=== PATIENT | female | born 1975 | race Two or more races ===

== ENCOUNTER 2021-09-13 12:41 | Observation (INO) | payer OTHER ==
[~2021-09-13] VITALS: Ht 172.7 cm; Wt 90.3 kg
[~2021-09-13 12:41] MED LIST: FLON1SPR; GABA-1171 PO; IBUP1TAB7 PO; PENT500C PO; PERCOCET PO; POLY17PO18 PO; SENN-53 PO; SOMA350T PO; ZANA4TAB PO
[2021-09-13] MEDS ORDERED: MESA400C2 PO (13:19)
[2021-09-13] MEDS ORDERED: MELA3TAB67 PO (13:19)
[2021-09-13] MEDS ORDERED: PRED20TA PO (13:19)
[2021-09-13] MEDS ORDERED: ALPR0.25 PO (13:19)
[2021-09-13 14:20] LABS: BASO # 0.1 10^3/uL (0.0-0.2); BASO % 0.4 % (0.0-1.0); EOS # 0.5 10^3/uL (0.0-0.5); EOS % 3.7 % (0.0-3.0); HEMATOCRIT 32.2 % (36.0-47.0); HEMOGLOBIN 9.8 g/dl (12.0-15.5); LYMPH # 1.9 10^3/uL (1.5-5.0); LYMPH % 14.5 % (24.0-44.0); MEAN CORPUSCULAR HEMOGLOBIN 23.9 pg (27.0-33.0); MEAN CORPUSCULAR HGB CONC 30.4 g/dl (32.0-36.5); MEAN CORPUSCULAR VOLUME 78.5 fl (80.0-96.0); MONO # 0.9 10^3/uL (0.0-0.8); MONO % 6.4 % (2.0-8.0); NEUTROPHILS # 9.8 10^3/uL (1.5-8.5); NEUTROPHILS % 74.5 % (36.0-66.0); PLATELET COUNT, AUTOMATED 396 10^3/uL (150-450); WHITE BLOOD COUNT 13.2 10^3/uL (4.0-10.0)
[2021-09-13 14:46] LABS: ALBUMIN 3.3 GM/DL (3.2-5.2); ALT/SGPT 32 U/L (12-78); BILIRUBIN,DIRECT 0.2 MG/DL (0.0-0.2); BILIRUBIN,TOTAL 0.5 MG/DL (0.2-1.0); BLOOD UREA NITROGEN 11 MG/DL (7-18); CALCIUM LEVEL 8.3 MG/DL (8.5-10.1); CARBON DIOXIDE LEVEL 25 MEQ/L (21-32); CHLORIDE LEVEL 110 MEQ/L (98-107); CREATININE FOR GFR 0.77 MG/DL (0.55-1.30); GLOMERULAR FILTRATION RATE > 60.0 (>58); GLUCOSE, FASTING 89 MG/DL (70-100); LIPASE 285 U/L (73-393); POTASSIUM SERUM 3.8 MEQ/L (3.5-5.1); SODIUM LEVEL 139 MEQ/L (136-145); TOTAL PROTEIN 6.8 GM/DL (6.4-8.2)
[2021-09-13 14:51] LABS: HCG, SERUM QUALITATIVE NEGATIVE (NEGATIVE)
[2021-09-13] MEDS ORDERED: ONDANSETRON 4MG/2ML VIAL IV ONE (16:50)
[2021-09-13] MEDS ORDERED: NS 1,000 ML IV ONE (16:50)
[2021-09-13 18:05] LABS: RSV AMPLIFICATION NEGATIVE (NEGATIVE)
[2021-09-13] MEDS ORDERED: IBUP200T46 PO (18:54)
[2021-09-13] MEDS ORDERED: NEUR100C PO (18:54)
[2021-09-13] MEDS ORDERED: HOME MED LIST COMPLETE! XX SCH (18:55)
[2021-09-13] MEDS ORDERED: FLUTICASONE PROP 0.05% NASAL SPRAY 16 GM (FLONASE) PRN (19:10)
[2021-09-13] MEDS ORDERED: ONDANSETRON 4MG/2ML VIAL IV PRN (19:10)
[2021-09-13] MEDS: NS 1,000 ML IV SCH (19:26)
[2021-09-13] MEDS: ACETAMINOPHEN TAB 650MG DOSE (2X325MG) PO PRN (19:26)
[2021-09-13] MEDS ORDERED: methylPREDNISolone 40MG 1ML VIAL IV ONE (20:40)
[2021-09-13] MEDS: ALPRAZolam 0.25 MG TAB PO SCH (21:05)
[2021-09-13] MEDS: GABAPENTIN 100 MG CAP PO SCH (21:05)
[2021-09-13] MEDS ORDERED: DICYCLOMINE 10 MG CAP PO PRN (21:15)
[2021-09-13] MEDS: MESALAMINE 400 MG CAPSULE DELAYED RELEASE (DELZICOL) PO SCH (21:42)
[2021-09-14] MEDS: ACETAMINOPHEN TAB 650MG DOSE (2X325MG) PO PRN ×2 (04:12→15:06)
[2021-09-14] MEDS: NS 1,000 ML IV SCH (04:13)
[2021-09-14 08:08] LABS: HEMATOCRIT 28.3 % (36.0-47.0); HEMOGLOBIN 8.7 g/dl (12.0-15.5); MEAN CORPUSCULAR HEMOGLOBIN 24.2 pg (27.0-33.0); MEAN CORPUSCULAR HGB CONC 30.7 g/dl (32.0-36.5); MEAN CORPUSCULAR VOLUME 78.8 fl (80.0-96.0); PLATELET COUNT, AUTOMATED 354 10^3/uL (150-450); RED BLOOD COUNT 3.59 10^6/uL (4.00-5.40); WHITE BLOOD COUNT 9.3 10^3/uL (4.0-10.0)
[2021-09-14 08:24] VITALS: BP 108/58
[2021-09-14 08:32] LABS: BLOOD UREA NITROGEN 8 MG/DL (7-18); CARBON DIOXIDE LEVEL 24 MEQ/L (21-32); CHLORIDE LEVEL 114 MEQ/L (98-107); CREATININE FOR GFR 0.68 MG/DL (0.55-1.30); GLOMERULAR FILTRATION RATE > 60.0 (>58); GLUCOSE, FASTING 146 MG/DL (70-100); MAGNESIUM LEVEL 2.3 MG/DL (1.8-2.4); POTASSIUM SERUM 4.2 MEQ/L (3.5-5.1); SODIUM LEVEL 141 MEQ/L (136-145)
[2021-09-14] MEDS ORDERED: FIORICET TAB PO ONE (08:40)
[2021-09-14] MEDS: methylPREDNISolone 40MG 1ML VIAL IV SCH (09:08)
[2021-09-14] MEDS: GABAPENTIN 100 MG CAP PO SCH ×3 (09:08→20:49)
[2021-09-14] MEDS: MESALAMINE 400 MG CAPSULE DELAYED RELEASE (DELZICOL) PO SCH ×3 (10:33→20:49)
[2021-09-14 14:45] VITALS: BP 124/68
[2021-09-14] MEDS: ALPRAZolam 0.25 MG TAB PO SCH (20:49)
[2021-09-15] VITALS: BP 108/68
[2021-09-15] MEDS ORDERED: RAMELTEON 8 MG TAB (ROZEREM) PO PRN (01:05)
[2021-09-15 04:00] VITALS: BP 107/68
[2021-09-15] MEDS ORDERED: PRED10TA2 PO (07:54)
[2021-09-15 08:12] LABS: HEMATOCRIT 26.5 % (36.0-47.0); HEMOGLOBIN 8.1 g/dl (12.0-15.5); MEAN CORPUSCULAR HGB CONC 30.6 g/dl (32.0-36.5); MEAN CORPUSCULAR VOLUME 78.6 fl (80.0-96.0); PLATELET COUNT, AUTOMATED 363 10^3/uL (150-450); RED BLOOD COUNT 3.37 10^6/uL (4.00-5.40); WHITE BLOOD COUNT 12.7 10^3/uL (4.0-10.0)
[2021-09-15] MEDS: GABAPENTIN 100 MG CAP PO SCH (08:55)
[2021-09-15] MEDS: methylPREDNISolone 40MG 1ML VIAL IV SCH (08:55)
[2021-09-15] MEDS: MESALAMINE 400 MG CAPSULE DELAYED RELEASE (DELZICOL) PO SCH (08:56)
== END 2021-09-15 10:15 | disposition home or self-care (01) ==
LOC: M ED 12:41 → M ED INP 19:06 → ENRESERV 09-14 14:07 → M MS5PR 09-14 14:40
PROVIDERS: ADMIT Family Medicine; ATTEND Family Medicine
DX: K51.911 Ulcerative colitis, unspecified with rectal bleeding (principal); R19.7 Diarrhea, unspecified; G35 Multiple sclerosis; Z79.899 Other long term (current) drug therapy; Z86.16 Personal history of COVID-19; Z88.8 Allergy status to other drugs, medicaments and biological substances; Z88.5 Allergy status to narcotic agent; Z91.041 Radiographic dye allergy status; F41.9 Anxiety disorder, unspecified; F32.9 Major depressive disorder, single episode, unspecified
CPT/HCPCS: 36415; 74176; 80048; 80076; 83690; 83735; 84145; 84703; 85025; 85027; 86850; 86900; 86901; 87505; 87631; 96374; 96375; 96376; 99285; J2405; J2920

== ENCOUNTER 2021-09-28 09:37 | Day surgery (SDC) | payer OTHER ==
[~2021-09-28] VITALS: Ht 172.7 cm; Wt 87.5 kg
[~2021-09-28 09:37] MED LIST changes: +ACET1TAB55 PO; +ALPR0.25 PO; +IBUP200T46 PO; +MELA3TAB67 PO; +MESA400C2 PO; +NEUR100C PO; +NS 1,000 ML IV ONE; +PRED10TA2 PO; +PRED20TA PO
[2021-09-28] MEDS ORDERED: LIDOCAINE 2% 100MG/5ML SDV (FOR ANES.) As Ordered ONE (12:42)
[2021-09-28] MEDS ORDERED: propofoL 200 MG/20 ML VIAL As Ordered ONE ×2 (12:42→12:53)
[2021-09-28] MEDS ORDERED: LABETALOL 100MG/20ML VIAL As Ordered ONE (13:24)
[2021-09-28 13:29] VITALS: BP 123/84
[2021-09-28] MEDS ORDERED: hydrALAZINE 20MG/ML 1ML VIAL (J0360 PER 20MG) As Ordered ONE (13:30)
== END 2021-09-28 13:33 | disposition home or self-care (01) ==
LOC: M OPP 09:37
PROVIDERS: ATTEND Internal Medicine Gastroenterology
DX: K51.00 Ulcerative (chronic) pancolitis without complications (principal); K62.89 Other specified diseases of anus and rectum; G35 Multiple sclerosis; F17.210 Nicotine dependence, cigarettes, uncomplicated; Z79.899 Other long term (current) drug therapy; Z88.5 Allergy status to narcotic agent; Z88.8 Allergy status to other drugs, medicaments and biological substances; Z91.041 Radiographic dye allergy status

== ENCOUNTER 2021-10-23 12:04 | Outpatient (CLI) | payer OTHER ==
[~2021-10-23] VITALS: Ht 170.2 cm; Wt 88.0 kg
[~2021-10-23 12:04] MED LIST changes: -NS 1,000 ML IV ONE
[2021-10-23 12:30] VITALS: BP 128/73
[2021-10-23] MEDS ORDERED: VEDOLIZUMAB 300 MG in NS 250 ML IV ONE (12:30)
[2021-10-23 14:16] VITALS: BP 132/71
== END 2021-10-23 14:15 | disposition home or self-care (01) ==
LOC: M INFU 12:04
PROVIDERS: ATTEND Internal Medicine Gastroenterology
DX: K51.90 Ulcerative colitis, unspecified, without complications (principal); Z88.8 Allergy status to other drugs, medicaments and biological substances; Z91.041 Radiographic dye allergy status
CPT/HCPCS: 96365; J3380

== ENCOUNTER 2021-11-06 13:30 | Outpatient (CLI) | payer OTHER ==
[~2021-11-06] VITALS: Ht 170.2 cm; Wt 88.0 kg
[~2021-11-06 13:30] MED LIST changes: +VEDOLIZUMAB 300 MG in NS 250 ML IV ONE
[2021-11-06 13:49] VITALS: BP 141/76
[2021-11-06 15:04] VITALS: BP 132/66
== END 2021-11-06 15:05 | disposition home or self-care (01) ==
LOC: M INFU 13:30
PROVIDERS: ATTEND Internal Medicine Gastroenterology
DX: K51.90 Ulcerative colitis, unspecified, without complications (principal); Z88.8 Allergy status to other drugs, medicaments and biological substances; Z91.041 Radiographic dye allergy status
CPT/HCPCS: 96365; J3380

== ENCOUNTER 2021-12-04 13:15 | Outpatient (CLI) | payer OTHER ==
[~2021-12-04] VITALS: Ht 170.2 cm; Wt 88.0 kg
[2021-12-04 13:15] VITALS: BP 153/76
[~2021-12-04 13:15] MED LIST changes: -VEDOLIZUMAB 300 MG in NS 250 ML IV ONE
[2021-12-04] MEDS ORDERED: VEDOLIZUMAB 300 MG in NS 250 ML IV ONE (13:30)
[2021-12-04 14:45] VITALS: BP 142/84
== END 2021-12-04 14:45 | disposition home or self-care (01) ==
LOC: M INFU 13:15
PROVIDERS: ATTEND Internal Medicine Gastroenterology
DX: K51.90 Ulcerative colitis, unspecified, without complications (principal); Z88.5 Allergy status to narcotic agent; Z88.6 Allergy status to analgesic agent; Z91.041 Radiographic dye allergy status
CPT/HCPCS: 96365; J3380

== ENCOUNTER 2022-01-31 13:30 | Outpatient (CLI) | payer OTHER ==
[~2022-01-31] VITALS: Ht 172.7 cm; Wt 85.0 kg
[~2022-01-31 13:30] MED LIST changes: +VEDOLIZUMAB 300 MG in NS 250 ML IV ONE
[2022-01-31 13:33] VITALS: BP 136/84
[2022-01-31 15:00] VITALS: BP 158/85
== END 2022-01-31 15:00 | disposition home or self-care (01) ==
LOC: M INFU 13:30
PROVIDERS: ATTEND Internal Medicine Gastroenterology
DX: K51.90 Ulcerative colitis, unspecified, without complications (principal); Z91.041 Radiographic dye allergy status; Z88.6 Allergy status to analgesic agent; Z88.8 Allergy status to other drugs, medicaments and biological substances
CPT/HCPCS: 96365; J3380

== ENCOUNTER 2022-03-26 13:05 | Outpatient (CLI) | payer OTHER ==
[~2022-03-26] VITALS: Ht 170.2 cm; Wt 88.0 kg
[2022-03-26 13:00] VITALS: BP 170/86
[~2022-03-26 13:05] MED LIST changes: -VEDOLIZUMAB 300 MG in NS 250 ML IV ONE
[2022-03-26] MEDS ORDERED: VEDOLIZUMAB 300 MG in NS 250 ML IV ONE (13:30)
[2022-03-26 14:20] VITALS: BP 146/90
== END 2022-03-26 14:20 | disposition home or self-care (01) ==
LOC: M INFU 13:05
PROVIDERS: ATTEND Internal Medicine Gastroenterology
DX: K51.90 Ulcerative colitis, unspecified, without complications (principal); Z91.041 Radiographic dye allergy status; Z88.6 Allergy status to analgesic agent; Z88.5 Allergy status to narcotic agent
CPT/HCPCS: 96365; J3380

== ENCOUNTER → 2022-04-05 | Outpatient (CLI) | payer OTHER ==
[2022-04-05 14:31] LABS: BASO # 0.1 10^3/uL (0.0-0.2); BASO % 0.5 % (0.0-1.0); EOS # 0.9 10^3/uL (0.0-0.5); EOS % 6.4 % (0.0-3.0); HEMATOCRIT 34.7 % (36.0-47.0); HEMOGLOBIN 10.4 g/dl (12.0-15.5); LYMPH % 14.1 % (24.0-44.0); MEAN CORPUSCULAR HEMOGLOBIN 24.4 pg (27.0-33.0); MEAN CORPUSCULAR VOLUME 81.5 fl (80.0-96.0); MONO # 0.8 10^3/uL (0.0-0.8); MONO % 5.8 % (2.0-8.0); NEUTROPHILS # 10.4 10^3/uL (1.5-8.5); NEUTROPHILS % 72.7 % (36.0-66.0); PLATELET COUNT, AUTOMATED 378 10^3/uL (150-450); RED BLOOD COUNT 4.26 10^6/uL (4.00-5.40); WHITE BLOOD COUNT 14.2 10^3/uL (4.0-10.0)
[2022-04-05 15:15] LABS: ALBUMIN 3.5 GM/DL (3.2-5.2); ALT/SGPT 27 U/L (12-78); BILIRUBIN,TOTAL 0.4 MG/DL (0.2-1.0); BLOOD UREA NITROGEN 15 MG/DL (7-18); C REACTIVE PROTEIN QUANTITATIV 2.71 MG/DL (0.00-0.30); CARBON DIOXIDE LEVEL 24 MEQ/L (21-32); CHLORIDE LEVEL 110 MEQ/L (98-107); CREATININE FOR GFR 0.72 MG/DL (0.55-1.30); GLOMERULAR FILTRATION RATE > 60.0 (>58); GLUCOSE, FASTING 99 MG/DL (70-100); POTASSIUM SERUM 4.6 MEQ/L (3.5-5.1); SODIUM LEVEL 139 MEQ/L (136-145)
[2022-04-05 15:51] LABS: ERYTHROCYTE SEDIMENTATION RATE 43 mm/hr (0-20)
== END ==
LOC: M LAB 11:42
PROVIDERS: ATTEND Internal Medicine Gastroenterology
DX: K51.011 Ulcerative (chronic) pancolitis with rectal bleeding (principal)

== ENCOUNTER 2022-09-05 13:06 | Outpatient (CLI) | payer OTHER ==
[2022-09-05] VITALS (7 sets, daily range): BP systolic 106–125; BP diastolic 58–78
[~2022-09-05] VITALS: Ht 172.7 cm; Wt 86.6 kg
[~2022-09-05 13:06] MED LIST changes: +ACETAMINOPHEN 650MG PO PRIOR TO INFUSION PO ONE; +NS 1,000 ML IV SCH; +dexameTHASONE 20 MG IV PRIOR TO INFUSION IV ONE; +inFLIXimab INJECTION 500 MG in NS 200 ML IV ONE
== END 2022-09-05 16:25 | disposition home or self-care (01) ==
LOC: M INFU 13:06
PROVIDERS: ATTEND Internal Medicine Gastroenterology
DX: K51.90 Ulcerative colitis, unspecified, without complications (principal); Z91.041 Radiographic dye allergy status; Z88.5 Allergy status to narcotic agent; Z88.6 Allergy status to analgesic agent
CPT/HCPCS: 96367; 96413; 96415; J1100; J1745

== ENCOUNTER 2022-09-19 12:55 | Outpatient (CLI) | payer OTHER ==
[~2022-09-19] VITALS: Ht 172.7 cm; Wt 86.6 kg
[2022-09-19 12:55] VITALS: BP 134/76
[~2022-09-19 12:55] MED LIST changes: -ACETAMINOPHEN 650MG PO PRIOR TO INFUSION PO ONE; -NS 1,000 ML IV SCH; -dexameTHASONE 20 MG IV PRIOR TO INFUSION IV ONE; -inFLIXimab INJECTION 500 MG in NS 200 ML IV ONE
[2022-09-19] MEDS ORDERED: inFLIXimab INJECTION 500 MG in NS 200 ML IV ONE (13:00)
[2022-09-19] MEDS ORDERED: NS 1,000 ML IV SCH (13:00)
[2022-09-19] MEDS ORDERED: ACETAMINOPHEN 650MG PO PRIOR TO INFUSION PO ONE (13:00)
[2022-09-19] MEDS ORDERED: dexameTHASONE 20 MG IV PRIOR TO INFUSION IV ONE (13:00)
[2022-09-19 14:00] VITALS: BP 117/87
[2022-09-19 14:30] VITALS: BP 125/71
[2022-09-19 15:00] VITALS: BP 137/88
[2022-09-19 15:45] VITALS: BP 136/78
== END 2022-09-19 15:45 | disposition home or self-care (01) ==
LOC: M INFU 12:55
PROVIDERS: ATTEND Internal Medicine Gastroenterology
DX: K51.90 Ulcerative colitis, unspecified, without complications (principal); Z91.041 Radiographic dye allergy status; Z88.5 Allergy status to narcotic agent; Z88.8 Allergy status to other drugs, medicaments and biological substances
CPT/HCPCS: 96367; 96413; 96415; J1100; J1745

== ENCOUNTER 2022-10-17 13:40 | Outpatient (CLI) | payer OTHER ==
[~2022-10-17] VITALS: Ht 172.7 cm; Wt 86.6 kg
[~2022-10-17 13:40] MED LIST changes: +ACETAMINOPHEN 650MG PO PRIOR TO INFUSION PO ONE; +NS 1,000 ML IV SCH; +dexameTHASONE 20 MG IV PRIOR TO INFUSION IV ONE; +inFLIXimab INJECTION 500 MG in NS 200 ML IV ONE
[2022-10-17 13:49] VITALS: BP 145/83
[2022-10-17 15:00] VITALS: BP 132/75
[2022-10-17 15:14] VITALS: BP 128/77
[2022-10-17 16:52] VITALS: BP 138/86
== END 2022-10-17 16:50 | disposition home or self-care (01) ==
LOC: M INFU 13:40
PROVIDERS: ATTEND Internal Medicine Gastroenterology
DX: K51.90 Ulcerative colitis, unspecified, without complications (principal); Z88.5 Allergy status to narcotic agent; Z88.8 Allergy status to other drugs, medicaments and biological substances; Z91.041 Radiographic dye allergy status
CPT/HCPCS: 96367; 96413; 96415; J1100; J1745

== ENCOUNTER 2023-02-06 11:15 | Outpatient (CLI) | payer OTHER ==
[~2023-02-06] VITALS: Ht 172.7 cm; Wt 89.8 kg
[2023-02-06 11:15] VITALS: BP 125/75; O2SAT 100
[~2023-02-06 11:15] MED LIST changes: -ACETAMINOPHEN 650MG PO PRIOR TO INFUSION PO ONE; -NS 1,000 ML IV SCH; -dexameTHASONE 20 MG IV PRIOR TO INFUSION IV ONE; -inFLIXimab INJECTION 500 MG in NS 200 ML IV ONE
[2023-02-06] MEDS ORDERED: ACETAMINOPHEN 650MG PO PRIOR TO INFUSION PO ONE (11:30)
[2023-02-06] MEDS ORDERED: NS 1,000 ML IV SCH (11:30)
[2023-02-06] MEDS ORDERED: dexameTHASONE 20 MG IV PRIOR TO INFUSION IV ONE (11:30)
[2023-02-06] MEDS ORDERED: inFLIXimab INJECTION 500 MG in NS 200 ML IV ONE (11:30)
[2023-02-06 12:14] VITALS: BP 140/91; TEMP 97.8; O2SAT 100
[2023-02-06 13:09] VITALS: BP 126/78; O2SAT 100
== END 2023-02-06 13:10 ==
LOC: M INFU 11:15
PROVIDERS: ATTEND Internal Medicine Gastroenterology
DX: K51.90 Ulcerative colitis, unspecified, without complications (principal); Z88.5 Allergy status to narcotic agent; Z91.041 Radiographic dye allergy status
CPT/HCPCS: 96413; J1745

== ENCOUNTER → 2023-04-03 | Outpatient (CLI) | payer OTHER ==
[~2023-04-03] MED LIST changes: +ACETAMINOPHEN 650MG PO PRIOR TO INFUSION PO ONE; +NS 1,000 ML IV SCH; +dexameTHASONE 20 MG IV PRIOR TO INFUSION IV ONE; +inFLIXimab INJECTION 500 MG in NS 200 ML IV ONE
[2023-04-03 15:45] VITALS: BP 160/88; O2SAT 100
[2023-04-03 16:50] VITALS: BP 132/75; TEMP 97; O2SAT 98
[2023-04-03 17:39] VITALS: BP 108/71; O2SAT 98
== END ==
LOC: M INFU 15:37
PROVIDERS: ATTEND Internal Medicine Gastroenterology
DX: K51.90 Ulcerative colitis, unspecified, without complications (principal); Z91.041 Radiographic dye allergy status; Z88.5 Allergy status to narcotic agent
CPT/HCPCS: 96367; 96413; J1100; J1745

== ENCOUNTER 2023-05-29 15:35 | Outpatient (CLI) | payer OTHER ==
[~2023-05-29] VITALS: Ht 172.7 cm; Wt 93.7 kg
[2023-05-29 15:35] VITALS: BP 133/77; O2SAT 100
[2023-05-29 16:45] VITALS: BP 128/84; O2SAT 99
[2023-05-29 17:50] VITALS: BP 136/83; O2SAT 100
== END 2023-05-29 17:50 | disposition home or self-care (01) ==
LOC: M INFU 15:35
PROVIDERS: ATTEND Internal Medicine Gastroenterology
DX: K51.90 Ulcerative colitis, unspecified, without complications (principal); Z91.041 Radiographic dye allergy status; Z88.5 Allergy status to narcotic agent; Z88.8 Allergy status to other drugs, medicaments and biological substances
CPT/HCPCS: 96413; J1745

== ENCOUNTER → 2023-07-22 | Outpatient (CLI) | payer OTHER ==
[~2023-07-22] MED LIST changes: -ACETAMINOPHEN 650MG PO PRIOR TO INFUSION PO ONE; -NS 1,000 ML IV SCH; -dexameTHASONE 20 MG IV PRIOR TO INFUSION IV ONE; -inFLIXimab INJECTION 500 MG in NS 200 ML IV ONE
[2023-07-22 16:40] LABS: CLOSTRIDIUM DIFFICILE PCR NEGATIVE (NEGATIVE)
== END ==
LOC: M LAB 14:54
PROVIDERS: ATTEND Internal Medicine Gastroenterology
DX: K51.00 Ulcerative (chronic) pancolitis without complications (principal); A04.72 Enterocolitis due to Clostridium difficile, not specified as recurrent

== ENCOUNTER 2023-07-24 15:34 | Outpatient (CLI) | payer OTHER ==
[~2023-07-24] VITALS: Ht 172.7 cm; Wt 90.9 kg
[~2023-07-24 15:34] MED LIST changes: +NS 1,000 ML IV SCH
[2023-07-24 15:45] VITALS: BP 124/57; O2SAT 99
[2023-07-24] MEDS: dexameTHASONE 20 MG IV PRIOR TO INFUSION IV ONE (16:00)
[2023-07-24] MEDS: ACETAMINOPHEN 650MG PO PRIOR TO INFUSION PO ONE (16:01)
[2023-07-24] MEDS: inFLIXimab INJECTION 500 MG in NS 200 ML IV ONE (16:17)
[2023-07-24 16:50] VITALS: BP 123/75; O2SAT 98
[2023-07-24 17:30] VITALS: BP 138/70; TEMP 97.3; O2SAT 98
== END 2023-07-24 17:40 ==
LOC: M INFU 15:34
PROVIDERS: ATTEND Internal Medicine Gastroenterology
DX: K51.90 Ulcerative colitis, unspecified, without complications (principal); Z88.5 Allergy status to narcotic agent; Z88.8 Allergy status to other drugs, medicaments and biological substances; Z91.041 Radiographic dye allergy status
CPT/HCPCS: 96367; 96413; J1100; J1745

== ENCOUNTER 2023-09-18 15:30 | Outpatient (CLI) | payer OTHER ==
[~2023-09-18] VITALS: Ht 170.2 cm; Wt 88.2 kg
[~2023-09-18 15:30] MED LIST changes: +ACETAMINOPHEN 650MG PO PRIOR TO INFUSION PO ONE; +dexameTHASONE 20 MG IV PRIOR TO INFUSION IV ONE
[2023-09-18 15:35] VITALS: BP 136/68; O2SAT 99
[2023-09-18] MEDS: inFLIXimab INJECTION 500 MG in NS 200 ML IV ONE (16:24)
[2023-09-18 16:45] VITALS: BP 123/73; O2SAT 99
[2023-09-18 17:34] VITALS: BP 127/70; O2SAT 99
== END 2023-09-18 17:30 ==
LOC: M INFU 15:30
PROVIDERS: ATTEND Internal Medicine Gastroenterology
DX: K51.90 Ulcerative colitis, unspecified, without complications (principal); Z91.041 Radiographic dye allergy status; Z88.5 Allergy status to narcotic agent
CPT/HCPCS: 96413; J1745

== ENCOUNTER 2023-11-13 15:30 | Outpatient (CLI) | payer OTHER ==
[~2023-11-13] VITALS: Ht 170.2 cm; Wt 90.9 kg
[~2023-11-13 15:30] MED LIST changes: -dexameTHASONE 20 MG IV PRIOR TO INFUSION IV ONE
[2023-11-13 15:35] VITALS: BP 141/73; O2SAT 100
[2023-11-13] MEDS: INFLIXIMAB BIOSIMILAR 500 MG in NS 200 ML IV ONE (16:31)
[2023-11-13 17:50] VITALS: BP 137/80; O2SAT 100
== END 2023-11-13 17:50 | disposition home or self-care (01) ==
LOC: M INFU 15:30
PROVIDERS: ATTEND Internal Medicine Gastroenterology
DX: K51.90 Ulcerative colitis, unspecified, without complications (principal); Z88.5 Allergy status to narcotic agent; Z88.8 Allergy status to other drugs, medicaments and biological substances; Z91.041 Radiographic dye allergy status
CPT/HCPCS: 96413; Q5103

== ENCOUNTER 2024-01-08 15:12 | Outpatient (CLI) | payer OTHER ==
[~2024-01-08] VITALS: Ht 172.7 cm; Wt 86.3 kg
[~2024-01-08 15:12] MED LIST changes: -ACETAMINOPHEN 650MG PO PRIOR TO INFUSION PO ONE; -NS 1,000 ML IV SCH
[2024-01-08] MEDS ORDERED: ACETAMINOPHEN 650MG PO PRIOR TO INFUSION PO ONE (15:30)
[2024-01-08] MEDS ORDERED: NS 1,000 ML IV SCH (15:30)
[2024-01-08] MEDS: INFLIXIMAB BIOSIMILAR 500 MG in NS 200 ML IV ONE (15:44)
[2024-01-08 16:00] VITALS: BP 101/62; O2SAT 100
== END 2024-01-08 16:50 ==
LOC: M INFU 15:12
PROVIDERS: ATTEND Internal Medicine Gastroenterology
DX: K51.90 Ulcerative colitis, unspecified, without complications (principal); Z88.5 Allergy status to narcotic agent; Z88.8 Allergy status to other drugs, medicaments and biological substances; Z91.041 Radiographic dye allergy status
CPT/HCPCS: 96365; Q5103

== ENCOUNTER 2024-08-28 12:16 | Outpatient (CLI) | payer OTHER ==
[~2024-08-28] VITALS: Ht 170.2 cm; Wt 76.8 kg
[~2024-08-28 12:16] MED LIST changes: +BENA25CA4 PO; +GABA-1172 PO; +IBUP200C27 PO; +INFL10VL IV; +THERTAB52 PO; +TRAM50TA2 PO
[2024-08-28 12:30] VITALS: BP 122/78; O2SAT 96
[2024-08-28] MEDS ORDERED: ACETAMINOPHEN 650MG PO PRIOR TO INFUSION PO ONE (12:30)
[2024-08-28] MEDS ORDERED: NS (Normal Saline) 0.9% 1,000 ML IV SCH (12:30)
[2024-08-28] MEDS: INFLIXIMAB BIOSIMILAR 500 MG in NS 200 ML IV ONE (13:40)
[2024-08-28 15:00] VITALS: BP 120/81; O2SAT 98
== END 2024-08-28 14:58 | disposition home or self-care (01) ==
LOC: M INFU 12:16
PROVIDERS: ATTEND Internal Medicine Gastroenterology
DX: K51.90 Ulcerative colitis, unspecified, without complications (principal); Z91.041 Radiographic dye allergy status; Z88.5 Allergy status to narcotic agent; Z88.8 Allergy status to other drugs, medicaments and biological substances
CPT/HCPCS: 96413; Q5103

== ENCOUNTER 2024-12-17 14:57 | Outpatient (CLI) | payer OTHER ==
[~2024-12-17] VITALS: Ht 172.7 cm; Wt 77.3 kg
[~2024-12-17 14:57] MED LIST changes: +ZINC50TA17 PO
[2024-12-17] MEDS ORDERED: NS (Normal Saline) 0.9% 1,000 ML IV SCH (15:00)
[2024-12-17] MEDS: INFLIXIMAB BIOSIMILAR 400 MG in NS 210 ML IV ONE (15:00)
[2024-12-17] MEDS: ACETAMINOPHEN 650MG PO PRIOR TO INFUSION PO ONE (15:00)
[2024-12-17 17:15] VITALS: BP 111/64; O2SAT 99
== END 2024-12-17 17:15 | disposition home or self-care (01) ==
LOC: M INFU 14:57
PROVIDERS: ATTEND Internal Medicine Gastroenterology
DX: K51.90 Ulcerative colitis, unspecified, without complications (principal); Z88.5 Allergy status to narcotic agent; Z88.8 Allergy status to other drugs, medicaments and biological substances; Z91.041 Radiographic dye allergy status
CPT/HCPCS: 96413; 96415; Q5103

== ENCOUNTER 2025-04-09 13:34 | Outpatient (CLI) | payer MEDICAID ==
[~2025-04-09] VITALS: Ht 170.2 cm; Wt 75.4 kg
[~2025-04-09 13:34] MED LIST changes: +NS (Normal Saline) 0.9% 1,000 ML IV SCH
[2025-04-09 14:00] VITALS: BP 119/72; O2SAT 98
[2025-04-09] MEDS ORDERED: ACETAMINOPHEN 650MG PO PRIOR TO INFUSION PO ONE (14:00)
[2025-04-09] MEDS ORDERED: NS (Normal Saline) 0.9% 1,000 ML IV SCH (14:00)
[2025-04-09] MEDS: INFLIXIMAB BIOSIMILAR 400 MG in NS 210 ML IV ONE (14:35)
[2025-04-09 15:45] VITALS: BP 104/55; O2SAT 99
== END 2025-04-09 15:45 | disposition home or self-care (01) ==
LOC: M INFU 13:34
PROVIDERS: ATTEND Internal Medicine Gastroenterology
DX: K51.00 Ulcerative (chronic) pancolitis without complications (principal); Z91.041 Radiographic dye allergy status; Z88.5 Allergy status to narcotic agent; Z88.8 Allergy status to other drugs, medicaments and biological substances
CPT/HCPCS: 96413; Q5103

== ENCOUNTER 2025-04-26 10:16 | Day surgery (SDC) | payer OTHER ==
[~2025-04-26] VITALS: Ht 172.7 cm; Wt 74.8 kg
[~2025-04-26 10:16] MED LIST changes: +MONT10TA97 PO; -NS (Normal Saline) 0.9% 1,000 ML IV SCH
[2025-04-26] MEDS ORDERED: LIDOCAINE 2% 100 MG/5 ML SDV (FOR ANES.) ONE (11:41)
[2025-04-26] MEDS ORDERED: GLYCOPYRROLATE INJ 0.2 MG/ML 2 ML VIAL ONE (11:41)
[2025-04-26 12:10] VITALS: TEMP 98.3
[2025-04-26 12:32] VITALS: BP 143/87; O2SAT 100
== END 2025-04-26 12:39 | disposition home or self-care (01) ==
LOC: M OPP 10:16
PROVIDERS: ATTEND Internal Medicine Gastroenterology
DX: D12.0 Benign neoplasm of cecum (principal); D12.2 Benign neoplasm of ascending colon; K51.00 Ulcerative (chronic) pancolitis without complications; K52.9 Noninfective gastroenteritis and colitis, unspecified; Z87.19 Personal history of other diseases of the digestive system; D50.9 Iron deficiency anemia, unspecified; Z88.5 Allergy status to narcotic agent; Z88.8 Allergy status to other drugs, medicaments and biological substances; Z91.041 Radiographic dye allergy status; Z79.899 Other long term (current) drug therapy; F17.210 Nicotine dependence, cigarettes, uncomplicated
CPT/HCPCS: 43239; 45385; 88305; J1596; J3010